=== PATIENT | female | born 1980 | race Caucasian/White ===

== ENCOUNTER 2016-12-17 22:30 | Emergency (ER) | payer BC ==
--- NOTE | 2016-12-17 22:33 | PDOC ---
History of Present Illness - General Chief Complaint: Migraine Headache Stated Complaint: MIGRAINE Time Seen by Provider: 12/17/16 22:32 - History of Present Illness Initial Comments: 12/18/16 00:[address] [place] last week. 4 days after [place], developed n/v/d. Today developed typical migraine. Stool: watery. No f/c No aura symptoms No rash fhx: noncontrib ros: reviewed and otherwise negative physical exam (after symptom improvement) GENERAL: [The patient is awake, alert, and fully oriented, and in no apparent distress.] HEAD: [Normal with no signs of trauma.] EYES: [Pupils equal, round and reactive to light, extraocular movements intact, sclera anicteric, conjunctiva are normal.] ENT: [TMs normal, nares patent, oropharynx clear without exudates. Moist mucous membranes.] NECK: [Normal range of motion, supple without lymphadenopathy, JVD, or masses.] LUNGS: [Breath sounds equal, clear to auscultation bilaterally. No wheezes, and no crackles.] HEART: [Regular rate and rhythm, normal S1 and S2 without murmur, rub or gallop.] ABDOMEN: [Soft, nontender, normoactive bowel sounds. No guarding, no rebound. No masses appreciated.] EXTREMITIES: [Normal range of motion, no edema. No clubbing or cyanosis. No cords, erythema, or tenderness.] NEUROLOGICAL: [Cranial nerves II through XII grossly intact. Normal speech, normal gait.] PSYCH: [Normal mood, normal affect.] SKIN: [Warm, Dry, normal turgor, no rashes or lesions noted.] a/p gastroeneteritis. ? travelers diarrhea. d/w pt. No abx for now. Pawan diet migraine. typical. improved after Reglan Past History - Past Medical History Allergies/Adverse Reactions: Allergies Allergy/AdvReac Type Severity Reaction Status Date / Time No Known Allergies Allergy Verified 09/28/15 15:10 Home Medications: Ambulatory Orders Ondansetron [Zofran Odt -] 4 mg SL Q8H 09/28/15 Diphenhydramine [Benadryl Capsule -] 50 mg PO TID PRN #30 capsule 02/25/16 Ibuprofen 800 mg PO TID PRN #30 tablet 02/25/16 Metoclopramide HCl [Reglan] 10 mg PO TID PRN #30 tablet 02/25/16 Ondansetron [Ondansetron Odt] 8 mg PO TID PRN #30 tab.rapdis 02/25/16 Asthma: No Cancer: No Cardiac Disorders: No Diabetes: No HTN: No Seizures: No Thyroid Disease: No - Family Disease History Family Disease History: Other: Father (Migraines) - Psycho/Social/Smoking Cessation Hx Anxiety: No Suicidal Ideation: No Smoking Status: No Smoking History: Never smoked Have you smoked in the past 12 months: No Number of Cigarettes Smoked Daily: 0 Hx Alcohol Use: No Drug/Substance Use Hx: No Hx Substance Use Treatment: No *DC/Admit/Observation/Transfer Diagnosis at time of Disposition: Gastroenteritis, GASTROENTERITIS/MIGRAINE Migraine headache Qualifiers: Migraine type: without aura Status migrainosus presence: without status migrainosus Intractability: not intractable Qualified Code(s): G43.009 - Migraine without aura, not intractable, without status migrainosus - Discharge Dispostion Disposition: HOME Condition at time of disposition: Stable - Patient Instructions Printed Discharge Instructions: DI for Viral Gastroenteritis -- Adult
[2016-12-17] MEDS ORDERED: METOCLOPRAMIDE HCL INJECTION 10 MG/2 ML VIAL IVPB ONE (22:34)
[2016-12-17 22:52] VITALS: BP 133/75; PULSE 92; TEMP 97.9; BMI 34.5
== END 2016-12-17 23:48 | disposition home or self-care (01) ==
LOC: FER 22:30
PROC: 3E033GC Introduction of Other Therapeutic Substance into Peripheral Vein, Percutaneous Approach (ICD-10-PCS; principal; 2016-12-17)
DX: G43.009 Migraine without aura, not intractable, without status migrainosus (principal); K52.9 Noninfective gastroenteritis and colitis, unspecified
CPT/HCPCS: 99281-25